=== PATIENT | male | born 1965 | race Caucasian/White ===

== ENCOUNTER 2022-04-12 00:54 | Day surgery (SDC) | payer BC, SELFPAY ==
[2022-03-30 15:48] VITALS: BMI 34.0
[2022-04-12 06:27] VITALS: BP 137/99; PULSE 81; RESP 18; TEMP 36.1; O2SAT 99
[2022-04-12] MEDS: LACTATED RINGERS 1,000 ML 150 ML IV CONT (06:38)
[2022-04-12 06:39] LABS: Glucose Point of Care 201 mg/dl (65-105)
--- NOTE | 2022-04-12 07:20 | PM.IMHP ---
H&P: HPI History of Present Illness Date/Time: 04/12/22 07:20 Chief Complaint: History of colon polyps. Narrative: This is a 57-year-old white male patient presents for screening colonoscopy. Patient has a prior history of colon polyps 2017. Patient reports his current weight appetite bowel movements are normal. He denies abdominal pain. Patient has had no bleeding. Family history is noncontributory. Patient presents today for follow-up colonoscopy. Review of Systems Review of Systems: Review of systems noncontributory. [facility] Surgical History Surgical History (Updated 01/09/22 @ 13:25 by Kayli Medina PA-C) History of tonsillectomy Family History Family History (Updated 01/10/22 @ 14:50 by Fred Keys MA) Father Acute myocardial infarction Diabetes mellitus Heart disease Grandparent Cerebrovascular accident Mother Diabetes mellitus Other Colon polyp Social History Social History (Updated 01/10/22 @ 14:51 by Fred Keys MA) Smoking status: Never smoker Second hand tobacco smoke exposure: No Alcohol intake: current Drinks per week: 2 Alcohol use details: Ocassional Substance use: never Substance use type: does not use Living arrangements: with family Gender identity (if verbalized by the patient): Male Sexual Orientation (if Verbalized by the Patient): Straight or Heterosexual Spiritual care concerns: No Agree to blood products: Yes Meds Home Medications and Allergies Home Medications Medication Instructions Recorded Confirmed Type metformin 500 mg tablet,extended 2,000 mg PO DAILY #360 tabs 01/09/22 03/30/22 Rx release 24 hr omeprazole 20 mg tablet,delayed 20 mg PO .PRN 01/10/22 03/30/22 History release Allergies Allergy/AdvReac Type Severity Reaction Status Date / Time No Known Allergies Allergy Verified 04/12/22 06:26 Vital Signs Vital Signs - 24 hr 04/12/22 06:27 Temperature 97 F L Pulse Rate 81 Respiratory Rate 18 Blood Pressure 137/99 H Pulse Oximetry 99 Oxygen Delivery Room Air Exam Narrative: Physical exam reveals patient to be alert. Vital signs stable. HEENT exam is unremarkable. Patient is anicteric. Lungs are clear to auscultation and percussion heart is without murmur or extra sounds. Abdominal exam bowel sounds are present soft nontender with no organomegaly. Digital external rectal exam is normal. Assessment and Plan Assessment and plan (1) History of colon polyps: Code(s): Z86.010 - Personal history of colonic polyps Status: Acute Assessment and Plan: Patient has a history of villous adenoma removed from the colon 2016. Plan is for surveillance colonoscopy now. Consider follow-up colonoscopy at 5 year intervals.
--- NOTE | 2022-04-12 07:22 | P.PNAN_ITS ---
Anes - Initial Pre Proc Eval Procedure: Operation Date: 04/12/22 07:30 Proposed Procedures p Screening Colonoscopy - Ward Lin MD Date/Time: 04/12/22 07:22 Surgeon: Ward Lin MD Pre Op Diagnosis: hx of colon polyps Patient Data Age: 57 Gender: M Height: 1.78 m Weight: 108.5 kg Last Vital Signs Temp 97 F L 04/12/22 06:27 Pulse 81 04/12/22 06:27 Resp 18 04/12/22 06:27 BP 137/99 H 04/12/22 06:27 Pulse Ox 99 04/12/22 06:27 O2 Del Method Room Air 04/12/22 06:27 Allergies Allergy/AdvReac Type Severity Reaction Status Date / Time No Known Allergies Allergy Verified 04/12/22 06:26 Home Medications Medication Instructions Recorded Confirmed Type metformin 500 mg tablet,extended 2,000 mg PO DAILY #360 tabs 01/09/22 03/30/22 Rx release 24 hr omeprazole 20 mg tablet,delayed 20 mg PO .PRN 01/10/22 03/30/22 History release Laboratory Tests 04/12/22 06:36 POC Capillary Glucose 201 mg/dl H mg/dl (65-105) Patient hx anesthesia problems: none Family hx anesthesia problems: none Results Review: All pre-operative results and documents have been reviewed as part of the pre- operative evaluation. [facility] Surgical History Surgical History (Updated 01/09/22 @ 13:25 by Kayli Medina PA-C) History of tonsillectomy Family History Family History (Updated 01/10/22 @ 14:50 by Fred Keys MA) Father Acute myocardial infarction Diabetes mellitus Heart disease Grandparent Cerebrovascular accident Mother Diabetes mellitus Other Colon polyp Social History Social History (Updated 01/10/22 @ 14:51 by Fred Keys MA) Smoking status: Never smoker Second hand tobacco smoke exposure: No Alcohol intake: current Drinks per week: 2 Alcohol use details: Ocassional Substance use: never Substance use type: does not use Living arrangements: with family Gender identity (if verbalized by the patient): Male Sexual Orientation (if Verbalized by the Patient): Straight or Heterosexual Spiritual care concerns: No Agree to blood products: Yes Anes - Eval Final PreProcedure Day of Procedure 04/12/22 07:22 Patient weight: obese Heart: regular rate and rhythm Lungs: clear to auscultation Airway: Mallampati scale class II Neurological: alert and oriented Last oral intake: >/= 8 hours ASA classification: II Emergent: no Anesthetic plan: proceed Anesthesia type and monitoring: general GIVS and standard monitoring Results Review: All pre-operative results and documents have been reviewed as part of the pre- operative evaluation. Informed Consent: The patient's anesthetic plan and its attendant risks and benefits were discussed with the patient/family/POA. Questions were solicited and answers provided to the satisfaction of the patient/family/POA.
[2022-04-12] MEDS: SIMETHICONE ORAL SUSPENSION 20 MG/0.3 ML 30 ML BOTTLE 0.6 ML IRRIGATION (07:38)
[2022-04-12 07:44] VITALS: BP 104/71; PULSE 76; RESP 24; O2SAT 99
[2022-04-12 07:54] VITALS: BP 123/97; PULSE 71; RESP 22; O2SAT 100
[2022-04-12 08:04] VITALS: BP 130/90; PULSE 65; RESP 15; O2SAT 100
== END 2022-04-12 08:09 | disposition home or self-care (01) ==
PROVIDERS: PCP Family Medicine Adolescent Medicine; Visit Provider Internal Medicine Gastroenterology
PROC: 0DJD8ZZ Inspection of Lower Intestinal Tract, Via Natural or Artificial Opening Endoscopic (ICD-10-PCS; CPT 45378; principal; 2022-04-12 07:30)
DX: Z12.11 Encounter for screening for malignant neoplasm of colon (principal); K64.8 Other hemorrhoids; Z79.84 Long term (current) use of oral hypoglycemic drugs; E66.9 Obesity, unspecified; Z68.34 Body mass index [BMI] 34.0-34.9, adult
CPT/HCPCS: 45378; 82948; J2704; J7120